=== PATIENT | female | born 1965 | race Caucasian/White ===

== ENCOUNTER 2017-07-03 01:15 | Emergency (ER) | payer MEDICAID ==
[~2017-07-03] VITALS: Ht 160 cm; Wt 77.0 kg
[~2017-07-03 01:15] MED LIST: ALPR1TAB2 PO; ATOR20TA9 PO; ESTR10TA PO; FENO134C PO; FENO48TA5 PO; FLUO20CA19 PO; LISI2.5T PO; LISI5TAB7 PO; METF500T4 PO; PANT40TA3 PO
[2017-07-03 01:55] LABS: HEMATOCRIT 41.6 % (34.6-47.8); HEMOGLOBIN 13.6 g/dL (11.7-16.4); WHITE BLOOD COUNT 9.6 x10^3/uL (3.4-10)
[2017-07-03 02:04] LABS: BLOOD UREA NITROGEN 15 mg/dL (7-18)
[2017-07-03 02:18] LABS: IS PT STATUS REG ER OR PRE ER? YES
[2017-07-03 02:34] VITALS: BP 142/82
== END 2017-07-03 02:35 | disposition home or self-care (01) ==
LOC: ED 02:29
DX: R07.89 Other chest pain (principal); E11.9 Type 2 diabetes mellitus without complications; F32.9 Major depressive disorder, single episode, unspecified; F41.9 Anxiety disorder, unspecified; I10 Essential (primary) hypertension; Z87.891 Personal history of nicotine dependence
CPT/HCPCS: 36415; 71020; 80048; 82040; 84484; 85025; 93005; 99285